=== PATIENT | female | born 2000 | race Caucasian/White ===

== ENCOUNTER 2025-01-14 11:55 | Emergency (ER) | payer BC, MEDICAID, SELFPAY ==
[2025-01-14 11:56] VITALS: BMI 30.9
[2025-01-14 12:07] VITALS: BP 117/87; PULSE 85; RESP 16; TEMP 37.1; O2SAT 99
--- NOTE | 2025-01-14 12:12 | EDNOTE_ITS ---
ED OB Contraction Preg RMI/HPI General Chief complaint: Vaginal Bleeding Stated complaint: +PREG VAG BLEEDING Time Seen by Provider: 01/14/25 11:59 Arrival date/time: 01/14/25 11:55 24-year-old female patient with no past medical history, 2 para 1, abortions 0, about 12 weeks , came in for evaluation regarding vaginal spotting. Onset of symptoms started this morning as vaginal spotting, severity mild. Currently patient is not wearing any pads. Patient denies any pelvic pain. Denies any other complaints. No dysuria. No checkup done yet. Patient tested positive for that she did at home x 3 few days ago. Related Data Previous Rx's ?Medication ?Instructions ?Recorded docusate sodium 100 mg capsule 100 mg PO BID #60 caps 08/05/20 (Colace) ibuprofen 800 mg tablet 800 mg PO Q6H PRN pain #120 tabs 08/05/20 lanolin 50 % topical ointment 1 applic topical TID PRN skin 08/05/20 irritation #15 grams Allergies Allergy/AdvReac Type Severity Reaction Status Date / Time No Known Allergies Allergy Verified 01/14/25 11:56 Review of Systems Review of Systems Narrative Review of Systems: Review of system reviewed and within normal limits except mentioned in HPI ED Exam Narrative Physical exam: VITAL SIGNS: Reviewed. GENERAL APPEARANCE: Alert and interactive, follows commands, no acute distress, HEAD AND FACE: Non-traumatic. ENT: PERRL, pink conjunctivitis, eyelid no trauma, Mucous membrane moist. NECK: Supple, nontender, no nuchal rigidity. CHEST: No tenderness, no crepitus, no paradoxical movement, no retractions. LUNGS: Clear, well ventilated, symmetric, no rales, no wheezing, no ronchi, no stridor, good breath sounds bilaterally. HEART: Regular rate, regular rhythm, no murmur, no gallops. ABDOMEN: Soft, positive bowel sounds, nondistended, no guarding, nontender, no rebound, no masses, RECTAL: Deferred. GENITAL: Deferred. NEUROLOGICAL: Gross motor function intact sensory function intact, Appropriate for age. MUSCULOSKELETAL: low back nontender, full range of motion. EXTREMITIES: Nontender, full range of motion. SKIN: Color pink, dry, no rash, no lacerations, no abrasions, no contusions. LYMPHATICS: Deferred. Course Quality Measures none Orders Category Date Time Status US OB <= 14 weeks fetus Stat Exams 01/14/25 12:12 Completed ABO/RH Type Stat Lab 01/14/25 12:21 Completed Basic Metabolic Panel Stat Lab 01/14/25 12:21 Completed Beta HCG,Quantitative Stat Lab 01/14/25 12:21 Completed CBC Stat Lab 01/14/25 12:21 Completed Urinalysis Stat Lab 01/14/25 12:44 Completed Vital Signs Vital signs: Vital Signs Temperature 98.7 F 01/14/25 12:07 Pulse Rate 85 01/14/25 12:07 Respiratory Rate 16 01/14/25 12:07 Blood Pressure 117/87 H 01/14/25 12:07 Pulse Oximetry (%) 99 01/14/25 12:07 Oxygen Delivery Method Room Air 01/14/25 12:07 Vaginal Bleeding MDM Narrative MDM Narrative: 24-year-old female patient with no past medical history, 2 para 1, abortions 0, about 12 weeks , came in for evaluation regarding vaginal spotting. Onset of symptoms started this morning as vaginal spotting, severity mild. Currently patient is not wearing any pads. Patient denies any pelvic pain. Denies any other complaints. No dysuria. No checkup done yet. Patient tested positive for that she did at home x 3 few days ago. Laboratory workup came back unremarkable urinalysis no UTI is dirty collection, hCG was noted to be 5161. CBC normal noanemia. Ultrasound of showed gestational sac intrauterine about 5 weeks and 2 days old. Results discussed with the patient. Patient stable for charged home Patient was advised to follow-up closely with [facility]AL [employer]CHANDISING MANAGER next week. For repeat hCG patient agrees with plan Patient data External records reviewed:: None Clinical information provided by:: patient Social determinants that could affect healthcare access:: none Patient has the following chronic illnesses:: None How is presenting disease/condition affected by chronic disease/condition?: no chronic disease Evaluation data The following diagnostics were reviewed and interpreted by me:: lab results and radiology exam(s) Lab and/or radiology exams considered but not ordered:: None Interpretation Summary: See above Medications / Prescriptions Medications or Prescriptions considered but not ordered:: None Medication administrations:: None Consultations Consultation(s) initiated? (list below): No Diagnosis Vaginal Bleeding Differential Diagnosis: threatened , incomplete and vaginal bleeding Most likely diagnosis given after review of the tests above:: Vaginal spotting, 5 weeks Admission Indicated Admission indicated?: not indicated Admission Request Was there a request for admission?: No Disposition Plan Disposition Plan: Discharge Discharge Attestation Discharge Attestation: The patient and all family members were given an opportunity to ask questions and understood the discharge instructions. Discharge instructions specifically effects, indications for sooner follow up or return to the emergency department, and the expected course of current diagnosis. Patient condition: Stable Discharge Plan Plan Patient Disposition: HOME (Self Care) Discharge Disposition comment: stable Prescriptions/Referrals Prescriptions/Med Rec: No Action ibuprofen 800 mg tablet 800 mg PO Q6H MDD 4 PRN (Reason: pain) Qty: 120 0RF docusate sodium [Colace] 100 mg capsule 100 mg PO BID Qty: 60 0RF lanolin 50 % ointment 1 applic topical TID PRN (Reason: skin irritation) Qty: 15 0RF Referrals: Karri Benson MD [Primary Care Provider, Family Practice] - In 1 week Problem List Clinical Impression: Vaginal spotting, Patient/Caregiver Discharge Instructions Discharge Activity: activity as tolerated Education Materials: First Trimester Additional Instructions: Thank you for the opportunity for serving you today. You are stable for discharged . You are advised to: Follow-up with your DIVISIONAL MERCHANDISING MANAGER next week Return to ED for worsening of symptoms Increase oral fluids Pelvic rest, no sex for 1 week or until cleared by DIVISIONAL MERCHANDISING MANAGER Print Language: Maltese Stand Alone Forms: Saniya Award Info., Patient Portal Info Letter LIDIA/LULÚ Supervising Physician PA/LULÚ Supervising Physician: MD Riddhi
--- NOTE | 2025-01-14 12:12 | XR_ITS ---
Examination: Complete OB ultrasound, less than 14 weeks, transabdominal Date and time of exam: January 14, 2025, 1248 hours INDICATIONS: Vaginal bleeding beginning today. Technique: Obstetrical ultrasound images less than 14 weeks performed via transabdominal imaging Findings: Uterus 8.9 cm intrauterine gestational sac 0.6 cm corresponds to 5 weeks 2 days gestational age No pole No cardiac activity Right ovary 3.9 cm arterial flow Left ovary 3.2 cm arterial flow IMPRESSION: Empty intrauterine gestational sac corresponding to 5 weeks 2 days gestational age Recommend transvaginal pelvic sonography follow-up
[2025-01-14 13:02] LABS: Basophils # (Auto) 0.1 Thou/mm3 (0.0-0.2); Basophils % (Auto) 1 % (0-2.5); Eosinophils # (Auto) 0.1 Thou/mm3 (0.0-0.5); Eosinophils % (Auto) 2 % (0-10); Hematocrit 39.8 % (36.0-46.0); Hemoglobin 13.7 g/dL (12.0-16.0); Immature Granulocytes Auto 0.03 Thou/mm3 (0.00-0.00); Lymphocytes # (Auto) 3.0 Thou/mm3 (1.0-4.8); Lymphocytes % (Auto) 39 % (10-50); Mean Corpuscular HGB Conc 34.4 g/dl (31.0-37.0); Mean Corpuscular Hemoglobin 32.1 pg (25.0-35.0); Mean Corpuscular Volume 93 fL (80-100); Monocytes # (Auto) 0.5 Thou/mm3 (0.0-0.8); Monocytes % (Auto) 6 % (0-12); Neutrophils # (Auto) 3.9 Thou/mm3 (1.8-7.7); Neutrophils % (Auto) 52 % (37-80); Nucleated Red Blood Cell # 0.00 Thou/mm3 (0.00-0.00); Nucleated Red Blood Cell % 0 /100 WBC (0); Platelet Count 219 Thou/mm3 (140-440); RDW Standard Deviation 43.1 fL (36.4-46.3); Red Blood Count 4.27 Miln/mm3 (4.00-5.20); White Blood Count 7.6 Thou/mm3 (3.6-11.0)
[2025-01-14 13:08] LABS: Bilirubin,Urine Negative (Negative); Blood,Urine Negative (Negative); Clarity,Urine Turbid (Clear/Hazy); Color,Urine Lt-Yellow (Lt Yel-Yel); Glucose, Urine Negative (Negative); Ketones,Urine Negative (Negative); Leukocyte Esterase,Urine Positive (Negative); Nitrite,Urine Negative (Negative); PH,Urine 7.5 (5.0-7.0); Protein,Urine Negative (Neg - Trace); RBC,Urine 2 /hpf (0-3); Specific Gravity,Urine 1.023 (1.001-1.035); Squamous Epithelial Cell,Urine 19 /hpf (0-5); Urobilinogen,Urine Negative mg/dL (0.0-1.0); WBC,Urine 14 /hpf (0-5)
[2025-01-14 13:21] LABS: Anion Gap 7 (7-16); BUN/Creatinine Ratio 10 Ratio (12-20); Blood Urea Nitrogen 6 mg/dL (9-23); Calcium 9.1 mg/dL (8.3-10.6); Carbon Dioxide 22.6 mMol/L (20.0-31.0); Chloride 109 mMol/L (98-107); Creatinine (Component) 0.6 mg/dL (0.6-1.3); Estimated Creatinine Clearance 146.9 mL/min (>60); Glucose 104 mg/dL (74-106); Osmolality,Calculated 275 (275-295); Potassium 4.4 mMol/L (3.4-5.1); Sodium 139 mMol/L (136-145); eGFR > 60 See Note
[2025-01-14 14:00] LABS: Beta HCG,Quantitative 5161 mIU/mL (<5.0)
== END 2025-01-14 15:18 | disposition home or self-care (01) ==
PROVIDERS: Nurse Practitioner Family; Emergency Provider Emergency Medicine; PCP Family Medicine
DX: O20.9 Hemorrhage in early pregnancy, unspecified (principal); Z3A.01 Less than 8 weeks gestation of pregnancy
CPT/HCPCS: 36415; 76801; 80048; 81001; 84702; 85025; 86900; 86901; 99283

== ENCOUNTER 2025-01-23 11:14 | Emergency (ER) | payer BC, MEDICAID, SELFPAY ==
[2025-01-23 11:15] VITALS: BMI 31.7
[2025-01-23 11:30] VITALS: BP 120/75; PULSE 68; RESP 18; TEMP 36.8; O2SAT 99
--- NOTE | 2025-01-23 11:33 | XR_ITS ---
Examination: Complete OB ultrasound, less than 14 weeks, transabdominal Date and time of exam: January 23, 2025, 11:51 a.m. INDICATIONS: Vaginal bleeding beginning yesterday, pelvic sonogram January 14, 2025 empty intrauterine gestational sac Technique: Obstetrical ultrasound images less than 14 weeks performed via transabdominal imaging Findings: Uterus 9.3 cm empty intrauterine gestational sac 0.8 cm corresponds to 5 weeks 4 days gestational age No pole, no cardiac activity Right ovary 3.4 cm arterial flow Left ovary obscured by bowel gas IMPRESSION: Empty intrauterine gestational sac corresponding to 5 weeks 4 days gestational age, likely embryonic demise given the ultrasound findings of January 14, 2025 Recommend transvaginal pelvic sonography follow-up to better assess for pole
--- NOTE | 2025-01-23 11:35 | PD.EDADULT ---
ED General RME/HPI General Chief complaint: Vaginal Bleeding Stated complaint: VAGINAL SPOTTING; 6 WEEKS Time Seen by Provider: 01/23/25 11:22 Arrival date/time: 01/23/25 11:14 CC: Vaginal bleeding HPI onset yesterday afternoon vaginal spotting with small clots patient is a at estimated 6 weeks. Complaining of very mild lower abdominal cramping yesterday none today. Denies fever chills chest pain shortness of breath or difficulty breathing Related Data Previous Rx's ?Medication ?Instructions ?Recorded docusate sodium 100 mg capsule 100 mg PO BID #60 caps 08/05/20 (Colace) ibuprofen 800 mg tablet 800 mg PO Q6H PRN pain #120 tabs 08/05/20 lanolin 50 % topical ointment 1 applic topical TID PRN skin 08/05/20 irritation #15 grams Allergies Allergy/AdvReac Type Severity Reaction Status Date / Time No Known Allergies Allergy Verified 01/23/25 11:16 Review of Systems Review of Systems Narrative Review of Systems: GEN: No fever, no chills, no weight loss EYES: No discharge, no visual changes, no pain HEENT: No ear pain, no congestion, no sore throat PULM: No shortness of breath, no cough, no congestion CV: No chest pain, no dyspnea on exertion, no palpitations GI: No nausea, no vomiting, no diarrhea, no pain, no constipation : No frequency, no urgency, no dysuria MUSC/SKEL: No joint pain, no back pain SKIN: No rash PSYCH: No hallucinations, no depression HEME/LYMPH: No easy bleeding or bruising tendencies NEURO: No weakness, no headache Past Medical History Past Medical History NEUROLOGIC: Negative Neurological Disorders, Seizures or Multiple Sclerosis CARDIAC: Negative Cardiac Disorders or Congestive Heart Failure RESPIRATORY: Negative Chronic Obstructive Pulmonary Disease (COPD), Asthma or Bronchitis GASTROINTESTINAL: Negative Gastrointestinal Disorders GENITOURINARY: Negative Genitourinary Disorders or Renal Disease MUSCULOSKELETAL: Negative Musculoskeletal Disorders or Scoliosis ENDOCRINE: Negative Endocrine Disorders, Diabetes Mellitus Type 1 or Diabetes Mellitus Type 2 HEMATOLOGIC: Negative Blood Disorders PSYCHO/SOCIAL: Positive Anxiety (NOT TAKING MEDICATION); Negative Depression OTHER HISTORY: Negative Hospitalization, Autoimmune Disease, Down Syndrome, Developmental Delay, Falls or Cancer Family History FAMILY HISTORY: Negative Family Psychiatric Problems, Family Respiratory Disorders, Family Cardiac Disorders, Family Gastrointestinal Problems, Family Cancer, Family Surgery or Family Anesthesia Reaction Surgical History SURGICAL: Negative Section Social History SMOKING STATUS: Never smoker ED Exam Narrative Physical exam: [General: Not in any acute distress Head normocephalic HEENT: Within acceptable limits Neck is supple nontender Chest equal chest rise nontender to palpation Respiratory: Clear to auscultation no wheezes crackles or rubs CV: Rate rhythm is regular no murmurs rubs or clicks Abdomen is soft nontender no masses positive bowel sounds all 4 quadrants Back: No CVA tenderness no spinous process tenderness from cervical spine thoracic and lumbar spine Skin: Intact no petechiae rash induration ulceration or crepitus Extremities: Moving all extremity against resistance cap refill less than 2 seconds neurosensory intact Neuro: Awake alert oriented x3 Glascow coma 15 no focal deficits] Course Quality Measures none Orders Category Date Time Status US OB <= 14 weeks fetus Stat Exams 01/23/25 11:33 Completed ABO/RH Type Stat Lab 01/23/25 12:19 Completed Beta HCG,Quantitative Stat Lab 01/23/25 12:19 Completed CBC Stat Lab 01/23/25 12:19 Completed Urinalysis Stat Lab 01/23/25 13:23 Completed Vital Signs Vital signs: Vital Signs Temperature 98.3 F 01/23/25 11:30 Pulse Rate 68 01/23/25 11:30 Respiratory Rate 18 01/23/25 11:30 Blood Pressure 120/75 01/23/25 11:30 Pulse Oximetry (%) 99 01/23/25 11:30 Oxygen Delivery Method Room Air 01/23/25 11:30 Discharge Plan Plan Patient Disposition: HOME (Self Care) Patient condition on transfer: Stable Prescriptions/Referrals Prescriptions/Med Rec: No Action ibuprofen 800 mg tablet 800 mg PO Q6H MDD 4 PRN (Reason: pain) Qty: 120 0RF docusate sodium [Colace] 100 mg capsule 100 mg PO BID Qty: 60 0RF lanolin 50 % ointment 1 applic topical TID PRN (Reason: skin irritation) Qty: 15 0RF Referrals: Karri Benson MD [Primary Care Provider, Family Practice] - In 1 week Problem List Clinical Impression: Threatened miscarriage Patient/Caregiver Discharge Instructions Other Activity Instructions:: Follow-up in 1 week. If there is a worsening extensive heavy bleeding or clots or fever return immediately otherwise follow-up with your primary care doctor. Education Materials: Understanding Miscarriage ..., ED Possible Miscarriage ... Print Language: Kiswahili Stand Alone Forms: Saniya Award Info., Work/School Release, Patient Portal Info Letter LIDIA/LULÚ Supervising Physician REJI Supervising Physician: Tony Pederson ENP MDM Clinical Information Provided by: patient Medical Records reviewed [facility] Meds/Rx considered, not ordered None Labs/Rad/Tests considered, not ordered None Chronic Illness/Social Conditions which may negatively complicate care or outcome(s)-explain: None or not applicable EKG EKG not done Labs Labs: interpreted by me Lab(s) Interpretation(s): hGH at 6200. CBC shows no acute leukocytosis anemia thrombocytopenia Urine is turbid no source of infection. ABO Rh is O+. Imaging Imaging interpretation: interpreted by me Imaging Interpretation(s): Gestational sac no heart tones at 5 weeks 4 days. Diagnosis Differential Diagnosis ED Complaint MDM: Ectopic first trimester vaginal bleeding miscarriage
[2025-01-23 12:41] LABS: Basophils # (Auto) 0.1 Thou/mm3 (0.0-0.2); Basophils % (Auto) 1 % (0-2.5); Eosinophils # (Auto) 0.2 Thou/mm3 (0.0-0.5); Eosinophils % (Auto) 2 % (0-10); Hematocrit 38.4 % (36.0-46.0); Hemoglobin 13.0 g/dL (12.0-16.0); Immature Granulocytes Auto 0.01 Thou/mm3 (0.00-0.00); Lymphocytes # (Auto) 2.3 Thou/mm3 (1.0-4.8); Lymphocytes % (Auto) 37 % (10-50); Mean Corpuscular HGB Conc 33.9 g/dl (31.0-37.0); Mean Corpuscular Hemoglobin 31.6 pg (25.0-35.0); Mean Corpuscular Volume 93 fL (80-100); Monocytes # (Auto) 0.5 Thou/mm3 (0.0-0.8); Monocytes % (Auto) 7 % (0-12); Neutrophils # (Auto) 3.3 Thou/mm3 (1.8-7.7); Neutrophils % (Auto) 52 % (37-80); Nucleated Red Blood Cell # 0.00 Thou/mm3 (0.00-0.00); Nucleated Red Blood Cell % 0 /100 WBC (0); Platelet Count 207 Thou/mm3 (140-440); RDW Standard Deviation 42.3 fL (36.4-46.3); Red Blood Count 4.11 Miln/mm3 (4.00-5.20); White Blood Count 6.2 Thou/mm3 (3.6-11.0)
[2025-01-23 13:30] LABS: Collection Type, Urine Clean Catch
[2025-01-23 13:45] LABS: Bacteria,Urine Rare; Bilirubin,Urine Negative (Negative); Blood,Urine Negative (Negative); Clarity,Urine Turbid (Clear/Hazy); Color,Urine Yellow (Lt Yel-Yel); Glucose, Urine Negative (Negative); Ketones,Urine Negative (Negative); Leukocyte Esterase,Urine Negative (Negative); Nitrite,Urine Negative (Negative); PH,Urine 6.5 (5.0-7.0); Protein,Urine Negative (Neg - Trace); RBC,Urine 4 /hpf (0-3); Specific Gravity,Urine 1.026 (1.001-1.035); Squamous Epithelial Cell,Urine 17 /hpf (0-5); Urobilinogen,Urine Negative mg/dL (0.0-1.0); WBC,Urine 6 /hpf (0-5)
[2025-01-23 13:46] LABS: Beta HCG,Quantitative 6206 mIU/mL (<5.0)
[2025-01-23 14:13] VITALS: BP 136/83; PULSE 70; RESP 18; TEMP 36.7; O2SAT 100
== END 2025-01-23 14:14 | disposition home or self-care (01) ==
PROVIDERS: Registered Nurse General Practice; Emergency Provider Family Medicine; PCP Family Medicine
DX: O20.0 Threatened abortion (principal); Z3A.01 Less than 8 weeks gestation of pregnancy
CPT/HCPCS: 36415; 76801; 81001; 84702; 85025; 86900; 86901; 99283